=== PATIENT | female | born 1985 | race Caucasian/White ===

== ENCOUNTER 2017-11-19 00:02 | Emergency (ER) | payer OTHER ==
[~2017-11-19 00:02] MED LIST: ISOS60 PO; LACT PO; NITR-29 PO; PROT40TA PO
[2017-11-19 00:13] VITALS: BP 176/89; PULSE 88; RESP 22; TEMP 98.4; O2SAT 99
[2017-11-19] MEDS ORDERED: LISI-519 PO (00:24)
[2017-11-19] MEDS ORDERED: HYDR25TA5 PO (00:24)
[2017-11-19] MEDS ORDERED: VIST50CA PO (00:24)
[2017-11-19] MEDS ORDERED: ZOLO50TA PO (00:24)
[2017-11-19] MEDS ORDERED: ZOLO100T PO (00:24)
[2017-11-19] MEDS ORDERED: ASPI81CH7 CHEW (00:24)
[2017-11-19] MEDS ORDERED: KETOROLAC TROMETHAMINE 60 MG/2 ML (IM) VIAL IM ONE (00:45)
--- NOTE | 2017-11-19 00:48 | PD ---
HPI Chief Complaint: Back/ Neck Pain or Injury Time Seen by Provider: 00:34 Travel History International Travel<30 days: No Contact w/Intl Traveler<30days: No Traveled to known affect area: No History of Present Illness HPI 32-year-old female brought in by ambulance from home for evaluation of left lateral/posterior rib pain. Patient reports that the symptoms started about an hour ago while smoking marijuana. She states she was coughing really hard and began to experience the pain. She reports a similar incident about 2 weeks ago , located more anteriorly. She reports that the coughing was induced from marijuana smoking. She otherwise has not had a cough. No hemoptysis. No history of DVT or PE. She occasionally smokes crack, however denies IVDU. Pain is sharp, worse with movement and palpation. No dyspnea. 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) Tobacco Use: Yes (ppd) Substance Use: Yes (MARIJUANA AND CRACK) Allergies-Medications (Allergen,Severity, Reaction): Coded Allergies: No Known Allergies (Verified Adverse Reaction, Unknown, 11/19/17) Reported Meds & Prescriptions Reported Meds & Active Scripts Active Reported Aspirin Children's (Aspirin) 81 Mg Chew 81 Mg CHEW DAILY Hydrochlorothiazide 25 Mg Tab 25 Mg PO DAILY Lisinopril 5 Mg Tab 25 Mg PO DAILY Vistaril (Hydroxyzine Pamoate) 50 Mg Cap 150 Mg PO HS Zoloft (Sertraline HCl) 100 Mg Tab 200 Mg PO DAILY Zoloft (Sertraline HCl) 50 Mg Tab 50 Mg PO DAILY Review of Systems Except as stated in HPI: all other systems reviewed are Neg Physical Exam Narrative GENERAL: Well-developed, well-nourished, overweight, comfortable, no apparent distress. SKIN: Focused skin assessment warm/dry. HEAD: Atraumatic. Normocephalic. EYES: Pupils equal and round. No scleral icterus. No injection or drainage. ENT: Mucous membranes pink and moist. NECK: Trachea midline. No JVD. CARDIOVASCULAR: Regular rate and rhythm. RESPIRATORY: No accessory muscle use. Clear to auscultation. Breath sounds equal bilaterally. GASTROINTESTINAL: Abdomen soft, non-tender, nondistended. MUSCULOSKELETAL: No obvious deformities. No clubbing. No cyanosis. No edema. Left lateral/posterior rib tenderness without step-off, without crepitus, without paradoxical chest wall movement. NEUROLOGICAL: Awake and alert. No obvious cranial nerve deficits. Motor grossly within normal limits. Normal speech. PSYCHIATRIC: Appropriate mood and affect; insight and judgment normal. Data Data Last Documented VS Vital Signs Date Time Temp Pulse Resp B/P (MAP) Pulse Ox O2 Delivery O2 Flow Rate FiO2 11/19/17 00:13 98.4 88 22 176/89 (118) 99 Orders Orders Ketorolac Inj (Toradol Inj) (11/19/17 00:45) Ribs, Uni (W/Exp Cxr-Min 3vw) (11/19/17 ) Electrocardiogram (11/19/17 ) MDM Medical Decision Making Medical Screen Exam Complete: Yes Emergency Medical Condition: Yes Interpretation(s) EKG: Sinus, rate 66, normal axis, normal intervals, no acute ischemic abnormality. Differential Diagnosis Musculoskeletal strain, pneumothorax, rib fracture, hemothorax, PE less likely, pleurisy, ACS unlikely Narrative Course Vital signs show heart rate 88, blood pressure 176/89, pulse ox 99% on room air , oral temp of 98.4F. Approximately 1:00 AM at the end of my shift visual signed out to Jakub Rod to follow-up with chest x-ray and EKG. If both are unremarkable, then the patient can be safely discharged home as this is most likely a muscle strain secondary to coughing. Diagnosis Primary Impression: Chest wall muscle strain Qualified Codes: S29.011A - Strain of muscle and tendon of front wall of thorax, initial encounter Referrals: Primary Care Physician 3 days Additional Instructions: Follow-up with a primary care physician this week. Return to the emergency department for worsening symptoms or any other concerns. Disposition: 01 DISCHARGE HOME Condition: Stable Bhaskar Hodges MD Nov 19, 2017 00:48
--- NOTE | 2017-11-19 01:18 | RADRPT ---
EXAM DATE/TIME: 11/19/2017 00:49 [place] COMPARISON: No previous studies available for comparison. INDICATIONS : Left side rib pain. Patient states she coughed too hard and now has rib pain. MEDICAL HISTORY : None. SURGICAL HISTORY : None. ENCOUNTER: Initial ACUITY: 1 day PAIN SCORE: 8/10 LOCATION: Left ribs. FINDINGS: Multiple views of the left ribs were performed. There is acute fracture at the posterior lateral lef t ninth rib. No destructive lesions or areas of periosteal thickening are seen. Expiratory view of t he chest is negative for pneumothorax. The mediastinal structures are midline. Clips are seen in th e right upper quadrant of the abdomen. CONCLUSION: Left ninth rib fracture. Gallo Hudson MD on November 19, 2017 at 1:15 Board Certified Radiologist. This report was verified electronically.
[2017-11-19] MEDS ORDERED: CYCL10TA PO (01:37)
[2017-11-19] MEDS ORDERED: ALBU6.7H INH (01:37)
[2017-11-19] MEDS ORDERED: DICL75TA PO (01:37)
--- NOTE | 2017-11-19 01:41 | PD ---
Physical Exam Date Seen by Provider: Nov 19, 2017 Time Seen by Provider: 01:37 Data Data Last Documented VS Vital Signs Date Time Temp Pulse Resp B/P (MAP) Pulse Ox O2 Delivery O2 Flow Rate FiO2 11/19/17 00:13 98.4 88 22 176/89 (118) 99 Orders Orders Ketorolac Inj (Toradol Inj) (11/19/17 00:45) Ribs, Uni (W/Exp Cxr-Min 3vw) (11/19/17 ) Electrocardiogram (11/19/17 ) Ed Discharge Order (11/19/17 01:32) [facility] Medical Record Reviewed: Yes Supervised Visit with MYESHA: Yes Interpretation(s) Left ribs: Negative for pneumothorax. Positive ninth rib fracture. EKG shows NSR, no ST elevation or depression, and no arrhythmias. No significant T-wave inversions. Differential Diagnosis Differential diagnoses: Pneumothorax, pneumomediastinum, rib fracture, back strain Narrative Course Patient's x-ray reveals a nondisplaced ninth rib fracture. EKG is negative for acute cardiac event. Patient is given prescription for diclofenac, Flexeril and albuterol. Diagnosis Primary Impression: Chest wall muscle strain Qualified Codes: S29.011A - Strain of muscle and tendon of front wall of thorax, initial encounter Additional Impression: left ninth rib fracture Referrals: Primary Care Physician 3 days Patient Instructions: General Instructions Additional Instruction: Follow-up with a primary care physician this week. Return to the emergency department for worsening symptoms or any other concerns. stop smoking. Diclofenac, Flexeril and albuterol. Return to the ER if any problems develop. Med/Other Pt SpecificInfo: Prescription(s) given Scripts Albuterol 6.7 GM Inh (Proventil Hfa 6.7 GM Inh) 90 Mcg/Act Aer 2 PUFF INH Q4-6H Y for SHORTNESS OF BREATH, #1 INHALER 0 Refills Prov: Bhaskar Hodges MD 11/19/17 Cyclobenzaprine (Flexeril) 10 Mg Tab 10 MG PO TID for Muscle Spasm, #30 TAB 0 Refills Prov: Bhaskar Hodges MD 11/19/[address] (Diclofenac Sodium DR) 75 Mg Tabdr 75 MG PO BID, #30 TAB 0 Refills Prov: Bhaskar Hodges MD 11/19/17 Disposition: 01 DISCHARGE HOME Condition: Stable Keelen,Serjio T. PA Nov 19, 2017 01:41
--- NOTE | 2017-11-19 22:06 | EKG ---
Date Performed: 11/19/2017 Time Performed: 01:02:59 PTAGE: 32 years EKG: Sinus rhythm INCOMPLETE RIGHT BUNDLE BRANCH BLOCK NONSPECIFIC T-WAVE ABNORMALITY BORDERLINE ECG PREVIOUS TRACING : 02/25/2015 04.32 Since previous tracing, no significant change noted DOCTOR: Gab Murguia Interpretating Date/Time 11/19/2017 22:05:29
== END 2017-11-19 02:09 | disposition home or self-care (01) ==
LOC: NEPD 00:02
DX: S22.32XA Fracture of one rib, left side, initial encounter for closed fracture (principal); S29.011A Strain of muscle and tendon of front wall of thorax, initial encounter; F12.90 Cannabis use, unspecified, uncomplicated; F17.200 Nicotine dependence, unspecified, uncomplicated; X58.XXXA Exposure to other specified factors, initial encounter
CPT/HCPCS: 71101; 93005; 96372; 99284; J1885

== ENCOUNTER 2017-12-16 18:24 | Emergency (ER) | payer OTHER ==
[~2017-12-16] VITALS: Ht 170.2 cm; Wt 195.0 kg
[~2017-12-16 18:24] MED LIST changes: +ALBU6.7H INH; +ASPI81CH7 CHEW; +CYCL10TA PO; +DICL75TA PO; +HYDR25TA5 PO; -ISOS60 PO; -LACT PO; +LISI-519 PO; -NITR-29 PO; -PROT40TA PO; +VIST50CA PO; +ZOLO100T PO; +ZOLO50TA PO
[2017-12-16 18:47] VITALS: BP 203/118; PULSE 78; RESP 16; O2SAT 99
[2017-12-16] MEDS ORDERED: SODIUM CHLOR 0.9% 1000 ML INJ 1,000 ML IV SCH (19:05)
--- NOTE | 2017-12-16 19:05 | PD ---
HPI Chief Complaint: Abdominal Pain Time Seen by Provider: 18:51 Travel History International Travel<30 days: No Contact w/Intl Traveler<30days: No Traveled to known affect area: No History of Present Illness HPI Patient is a 32-year-old female presents to the emergency department for evaluation of epigastric and abdominal pain secondary to a ventral hernia. Patient states she had her ventral hernia repaired years ago and then it reoccurred so she went to [facility] the other day and had a CAT scan of her abdomen showing a hernia and then the physician "pushed on it" and then it felt worse. She presented here today because the paramedics told her this is the better place to come. Denies any fever denies any vomiting but does endorse mild nausea and no diarrhea no fevers. PFSH Past Medical History Blood Disorders: No Anxiety: Yes Depression: Yes Heart Rhythm Problems: No Cancer: No Cardiovascular Problems: Yes Congestive Heart Failure: No Diminished Hearing: No Endocrine: No Genitourinary: No Hiatal Hernia: Yes Hypertension: Yes Immune Disorder: No Kidney Stones: Yes Psychiatric: Yes Reproductive: No Respiratory: No Myocardial Infarction: Yes (2009) PNEUMOCCOCAL Vaccine (Year): 2 ?: Not : 4 Para: 4 Tubal Ligation: Yes Past Surgical History Cardiac Surgery: Yes (CARDIAC CATH) Cholecystectomy: Yes Pacemaker: No Other Surgery: Yes (UMBILICAL HERNIA) Social History 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 HEAD: Atraumatic. Normocephalic. EYES: Pupils equal and round. No scleral icterus. No injection or drainage. ENT: No nasal bleeding or discharge. Mucous membranes pink and moist. NECK: Trachea midline. No JVD. CARDIOVASCULAR: Regular rate and rhythm. No murmur appreciated. RESPIRATORY: No accessory muscle use. Clear to auscultation. Breath sounds equal bilaterally. GASTROINTESTINAL: Abdomen soft, non-tender, nondistended. Hepatic and splenic margins not palpable. MUSCULOSKELETAL: No obvious deformities. No clubbing. No cyanosis. No edema. There appears to be a mass/hernia underlying a surgical scar which could be consistent with a hernia but her exam is extremely limited secondary to body habitus. The abdomen is otherwise benign no rebound no percussive tenderness, normal active bowel sounds NEUROLOGICAL: Awake and alert. No obvious cranial nerve deficits. Motor grossly within normal limits. Normal speech. PSYCHIATRIC: Appropriate mood and affect; insight and judgment normal. Data Data Last Documented VS Vital Signs Date Time Temp Pulse Resp B/P (MAP) Pulse Ox O2 Delivery O2 Flow Rate FiO2 12/16/17 19:43 16 98 Room Air 12/16/17 18:47 78 Orders Orders Complete Blood Count With Diff (12/16/17 19:05) Comprehensive Metabolic Panel (12/16/17 19:05) Lipase (12/16/17 19:05) Lactic Acid (12/16/17 19:05) Urinalysis - C+S If Indicated (12/16/17 19:05) Iv Access Insert/Monitor (12/16/17 19:05) Ecg Monitoring (12/16/17 19:05) Oximetry (12/16/17 19:05) Ondansetron Inj (Zofran Inj) (12/16/17 19:15) Sodium Chlor 0.9% 1000 Ml Inj (Ns 1000 M (12/16/17 19:05) Sodium Chloride 0.9% Flush (Ns Flush) (12/16/17 19:15) Morphine Inj (Morphine Inj) (12/16/17 19:15) Hydromorphone Pf Inj (Dilaudid Pf Inj) (12/16/17 21:45) Ed Discharge Order (12/16/17 22:34) Labs Laboratory Tests Test 12/16/17 19:25 White Blood Count 10.9 TH/MM3 Red Blood Count 5.25 MIL/MM3 Hemoglobin 15.1 GM/DL Hematocrit 43.9 % Mean Corpuscular Volume 83.6 FL Mean Corpuscular Hemoglobin 28.7 PG Mean Corpuscular Hemoglobin Concent 34.3 % Red Cell Distribution Width 14.4 % Platelet Count 282 TH/MM3 Mean Platelet Volume 7.8 FL Neutrophils (%) (Auto) 73.8 % Lymphocytes (%) (Auto) 18.1 % Monocytes (%) (Auto) 7.1 % Eosinophils (%) (Auto) 0.6 % Basophils (%) (Auto) 0.4 % Neutrophils # (Auto) 8.0 TH/MM3 Lymphocytes # (Auto) 2.0 TH/MM3 Monocytes # (Auto) 0.8 TH/MM3 Eosinophils # (Auto) 0.1 TH/MM3 Basophils # (Auto) 0.0 TH/MM3 CBC Comment DIFF FINAL Differential Comment Blood Urea Nitrogen 12 MG/DL Creatinine 0.82 MG/DL Random Glucose 98 MG/DL Total Protein 7.9 GM/DL Albumin 3.5 GM/DL Calcium Level 9.0 MG/DL Alkaline Phosphatase 87 U/L Aspartate Amino Transf (AST/SGOT) 33 U/L Alanine Aminotransferase (ALT/SGPT) 39 U/L Total Bilirubin 0.8 MG/DL Sodium Level 137 MEQ/L Potassium Level 2.8 MEQ/L Chloride Level 98 MEQ/L Carbon Dioxide Level 28.9 MEQ/L Anion Gap 10 MEQ/L Estimat Glomerular Filtration Rate 80 ML/MIN Lactic Acid Level 1.2 mmol/L Lipase 97 U/L MDM Medical Decision Making Medical Screen Exam Complete: Yes Emergency Medical Condition: Yes Differential Diagnosis Strangulate hernia, incarcerated hernia, seroma. Narrative Course Patient was room to the emergency department, after some time we were able to obtain outside records from [facility], the patient was seen by Dr. Agusto Yañez, she had a CAT scan last night and the read of this CAT scan showed the following results: "Large umbilical hernia containing a loop of transverse colon which appears mildly distended within the sac. Large bowel beyond is nearly completely decompressed. Correlate clinically to rule out incarceration. Although there is no fluid within the hernial sac and there is no gross mural thickening in the involved loops of the colon upper peripheral is recommended due to the risk of strangulation. No small bowel dilation. Hepatic steatosis, right adrenal gland myolipoma, benign." Below this under reexamination: "Notes: For local hernia, easily reduced, patient did receive a CT scan before hernia reduction, it showed a loop of transverse cold distention within sac, possible incarceration no evidence of strangulation. Patient felt better after hernia was reduced. Patient also on laboratory workup UTI will be sent home on Keflex stable for discharge outpatient follow-up." Patient's labs including a CBC, CMP a lactic acid a lipase is significant only for some mild hypokalemia with potassium at 2.8. Fairly certain I felt a small amount of this mass slipped into her abdomen however it is a very difficult examination secondary to her body habitus. I am hesitant to re-CAT scan her as her abdomen is very benign and she is not displaying any symptoms of obstipation or fever and I do not think this represents a strangulate hernia. I have asked for my colleague Dr. Iniguez to examine the patient as well, he is performed a bedside ultrasound and cannot identify any intestine in the extraperitoneal space. He is also examined the patient and does not believe that there is any intestine within the abdominal wall, we both agree that the patient can go home at this time and follow-up with general surgery, she was counseled closely and return to ED criteria. She is stable for discharge. Patient was given multiple doses of narcotics in the emergency department, she assures me that she has a ride coming and is not driving home. Diagnosis Primary Impression: Hernia, ventral Referrals: Marlon Cohen MD Patient Instructions: General Instructions, Ventral Hernia (DC) Disposition: 01 DISCHARGE HOME Condition: Stable Pravin Chacon MD Dec 16, 2017 19:05
[2017-12-16] MEDS ORDERED: ONDANSETRON HCL 4 MG/2 ML VIAL IVP ONE (19:15)
[2017-12-16] MEDS ORDERED: SODIUM CHLORIDE 0.9% FLUSH 10 ML FLUSH IV FLUSH PRN (19:15)
[2017-12-16] MEDS ORDERED: MORPHINE SULFATE 8 MG/ML INJ IV PUSH ONE (19:15)
[2017-12-16 19:43] VITALS: RESP 16; O2SAT 98
[2017-12-16 20:08] LABS: BASOPHIL % 0.4 % (0.0-2.0); EOSINOPHIL # 0.1 TH/MM3 (0-0.4); EOSINOPHIL % 0.6 % (0.0-4.0); HEMATOCRIT 43.9 % (35.0-46.0); HEMOGLOBIN 15.1 GM/DL (11.6-15.3); LYMPH % 18.1 % (9.0-44.0); MEAN CELL VOLUME 83.6 FL (80.0-100.0); MEAN CORPUSCULAR HEMOGLOBIN 28.7 PG (27.0-34.0); MEAN CORPUSCULAR HGB CONC 34.3 % (32.0-36.0); MEAN PLATELET VOLUME 7.8 FL (7.0-11.0); MONO % 7.1 % (0.0-8.0); MONOCYTE # 0.8 TH/MM3 (0-0.9); NEUT % 73.8 % (16.0-70.0); PLATELET COUNT 282 TH/MM3 (150-450); RED BLOOD COUNT 5.25 MIL/MM3 (4.00-5.30); RED CELL DISTRIBUTION WIDTH 14.4 % (11.6-17.2); WHITE BLOOD COUNT 10.9 TH/MM3 (4.0-11.0)
[2017-12-16 20:23] LABS: ALBUMIN 3.5 GM/DL (3.4-5.0); ALKALINE PHOSPHATASE 87 U/L (45-117); ALT (GPT) 39 U/L (10-53); AST (GOT) 33 U/L (15-37); BICARBONATE 28.9 MEQ/L (21.0-32.0); BLOOD UREA NITROGEN 12 MG/DL (7-18); CHLORIDE 98 MEQ/L (98-107); CREATININE 0.82 MG/DL (0.50-1.00); GLOMERULAR FILTRATION RATE 80 ML/MIN (>89); GLUCOSE,RANDOM 98 MG/DL (74-106); SODIUM (NA) 137 MEQ/L (136-145); TOTAL BILIRUBIN ADULT 0.8 MG/DL (0.2-1.0); TOTAL PROTEIN 7.9 GM/DL (6.4-8.2)
[2017-12-16] MEDS ORDERED: HYDROmorphone HCL PF 2 MG/ML VIAL IV PUSH ONE (21:45)
[2017-12-16] MEDS ORDERED: POTASSIUM CHLORIDE 20 MEQ CONTROLLED RELEASE TAB PO ONE (23:00)
== END 2017-12-16 23:10 | disposition home or self-care (01) ==
LOC: NEPD 18:24
DX: K43.9 Ventral hernia without obstruction or gangrene (principal); I10 Essential (primary) hypertension; F41.9 Anxiety disorder, unspecified; F32.9 Major depressive disorder, single episode, unspecified; I25.2 Old myocardial infarction; F17.200 Nicotine dependence, unspecified, uncomplicated; F12.90 Cannabis use, unspecified, uncomplicated
CPT/HCPCS: 80053; 83605; 83690; 85025; 96374; 96375; 99283; J1170; J2270; J2405; J7030

== ENCOUNTER 2018-03-19 14:45 | Emergency (ER) | payer OTHER ==
[~2018-03-19] VITALS: Ht 157.5 cm; Wt 200.0 kg
[~2018-03-19 14:45] MED LIST changes: -ALBU6.7H INH; -ASPI81CH7 CHEW; -CYCL10TA PO; -DICL75TA PO; -VIST50CA PO; -ZOLO100T PO; -ZOLO50TA PO
[2018-03-19 15:22] VITALS: BP 141/73; PULSE 84; RESP 18; TEMP 99; O2SAT 99
[2018-03-19] MEDS ORDERED: ZOLO100T PO (18:41)
[2018-03-19] MEDS ORDERED: VIST50CA PO (18:41)
--- NOTE | 2018-03-19 18:56 | PD ---
HPI Chief Complaint: Skin Problem Time Seen by Provider: 18:55 Travel History International Travel<30 days: No Contact w/Intl Traveler<30days: No Traveled to known affect area: No History of Present Illness HPI 32-year-old female presents to the emergency department with 2 complaints. Her first complaint is an itchy rash to both hands that started yesterday after getting off of the [employer] bus. Denies airway edema, tongue edema, shortness of breath, difficulty breathing. Denies fever, vomiting. Denies new exposures to lotions, soaps, detergents, medications, foods, environmental exposures. No one else with similar symptoms. Has not taken any medication or trying treatments to alleviate her symptoms. Symptoms are mild in severity. No known aggravating or relieving factors. Her second complaint is an abscess to her abdominal scar that started a few days ago and opened up and drained last night. She had history of hernia repair 4 months ago. Denies fever, vomiting. Denies pain to the area. Says she has had areas like this that come and go to the surgical scar. Her surgeon is at [facility]. Has not taken any medication or try any treatments to alleviate her symptoms. Has covered with a bandage. No known aggravating or relieving factors. Symptoms are mild to moderate in severity. No known allergies. No primary care provider. History of hypertension. Has no other medical complaints. No other modifying factors or associated signs and symptoms. PFSH Past Medical History Blood Disorders: No Anxiety: Yes Depression: Yes Heart Rhythm Problems: No Cancer: No Cardiovascular Problems: Yes Congestive Heart Failure: No Diminished Hearing: No Endocrine: No Genitourinary: No Hiatal Hernia: Yes Hypertension: Yes Immune Disorder: No Kidney Stones: Yes Psychiatric: Yes Reproductive: No Respiratory: No Myocardial Infarction: Yes (2009) PNEUMOCCOCAL Vaccine (Year): 2 ?: Not LMP: 02/11/18 : 4 Para: 4 Tubal Ligation: Yes Past Surgical History Cardiac Surgery: Yes (CARDIAC CATH) Cholecystectomy: Yes Pacemaker: No Other Surgery: Yes (UMBILICAL HERNIA) Social History Alcohol Use: No Tobacco Use: Yes (PPD BLACK AND MILDS) Substance Use: No Allergies-Medications (Allergen,Severity, Reaction): Coded Allergies: No Known Allergies (Verified Adverse Reaction, Unknown, 03/19/18) Reported Meds & Prescriptions Reported Meds & Active Scripts Active Deltasone (Prednisone) 20 Mg Tab 40 Mg PO DAILY 4 Days start 03/20/2018 Bactrim DS (Sulfamethoxazole-Trimethoprim) 800-160 Mg Tab 1 Tab PO BID 10 Days Reported Zoloft (Sertraline HCl) 100 Mg Tab 150 Mg PO DAILY Vistaril (Hydroxyzine Pamoate) 50 Mg Cap 150 Mg PO HS Hydrochlorothiazide 25 Mg Tab 25 Mg PO DAILY Lisinopril 5 Mg Tab 25 Mg PO DAILY Review of Systems Except as stated in HPI: all other systems reviewed are Neg Physical Exam Narrative GENERAL: Well-nourished, well-developed patient, in no acute distress; afebrile , nontoxic-appearing SKIN: Warm and dry. Generalized small areas of maculopapular rash to bilateral hands and forearms. No cellulitic process noted. Abdomen with surgical scar with 2 pinpoint areas that have minimal amount of purulent drainage noted; no palpable abscesses or fluctuance; no surrounding erythema; without tenderness on palpation. HEAD: Atraumatic. Normocephalic. EYES: Pupils equal and round. No scleral icterus. No injection or drainage. ENT: Mucosa pink and moist. No erythema or exudates. No uvular edema. No uvular , palatal, or tonsillar deviation. Airway patent. EARS: Bilateral pinnae and external canals appear within normal limits. Bilateral tympanic membranes without erythema, dullness or perforation. NECK: Trachea midline. No lymphadenopathy. CARDIOVASCULAR: Regular rate RESPIRATORY: No accessory muscle use. GASTROINTESTINAL: Obese. MUSCULOSKELETAL: No obvious deformities. No clubbing. No cyanosis. No edema. NEUROLOGICAL: Awake and alert. Oriented 3. No obvious cranial nerve deficits. Motor grossly within normal limits. Normal speech. Moves all extremities. 5/5 strength to all extremities. PSYCHIATRIC: Appropriate mood and affect; insight and judgment normal. Data Data Last Documented VS Vital Signs Date Time Temp Pulse Resp B/P (MAP) Pulse Ox O2 Delivery O2 Flow Rate FiO2 03/19/18 15:22 99.0 84 18 141/73 (95) 99 Orders Orders Sulfamet-Trimeth Ds 800-160 Mg (Bactrim (03/19/18 19:15) Diphenhydramine (Benadryl) (03/19/18 19:15) Prednisone (Deltasone) (03/19/18 19:15) Ed Discharge Order (03/19/18 19:03) Wound Culture And Gram Stain (03/19/18 19:03) [facility] Medical Decision Making Medical Screen Exam Complete: Yes Emergency Medical Condition: Yes Medical Record Reviewed: Yes Differential Diagnosis Hives, scabies, abscess, surgical wound abscess Narrative Course 32-year-old female with a rash to bilateral hands and forearms that is itchy in nature. Appears to be consistent with hives. She also has 2 small pinpoint areas to her midline abdominal surgical scar that have a minimal amount of purulent drainage. There is no surrounding erythema or palpable abscesses or fluctuance. Patient is afebrile nontoxic pain. Denies fever, vomiting. Wound culture pending. Benadryl, Bactrim, Deltasone administered in the ER. Deltasone and Bactrim prescribed for home. Instructed patient to follow up with primary care provider. Patient verbalizes understanding and agreement with treatment plan. Patient is medically cleared and stable for discharge. Discussed reasons to return to the emergency department. Patient agrees with treatment plan. The patients vital signs are stable and the patient is stable for outpatient follow-up and treatment. Patient discharged home, stable and in no acute distress. Diagnosis Primary Impression: Rash and nonspecific skin eruption Additional Impression: Abdominal wall abscess at site of surgical wound Referrals: [facility] [employer] Primary Care Physician Patient Instructions: Abscess (ED), Abscess Follow-up (ED), Acute Rash (ED), General Instructions Additional Instructions: Take oral steroids as prescribed [id number] topicals to reduce itch Benadryl as directed and as needed to reduce itch Follow-up with your primary care provider Return to the emergency department immediately with worsening of symptoms Complete full course of antibiotics Warm compresses to the affected area Keep area clean and dry Ibuprofen or Tylenol as directed and as needed for pain and inflammation Follow-up with primary care provider Return to emergency department immediately with worsening of symptoms Med/Other Pt SpecificInfo: Prescription(s) given Scripts Prednisone (Deltasone) 20 Mg Tab 40 MG PO DAILY for 4 Days, #8 TAB 0 Refills start 03/20/2018 Prov: Di Uribe 03/19/18 Sulfamethoxazole-Trimethoprim (Bactrim DS) 800-160 Mg Tab 1 TAB PO BID for Infection for 10 Days, #20 TAB 0 Refills Prov: Di Uribe 03/19/18 Disposition: 01 DISCHARGE HOME Condition: Stable Di Uribe March 19, 2018 18:56
[2018-03-19] MEDS ORDERED: BACT800T5 PO (19:08)
[2018-03-19] MEDS ORDERED: PRED-503 PO (19:08)
[2018-03-19] MEDS ORDERED: predniSONE 20 MG TAB PO ONE (19:15)
[2018-03-19] MEDS ORDERED: SULFAMETHOXAZOLE-TRIMETHOPRIM DS 800-160 MG TAB PO ONE (19:15)
[2018-03-19] MEDS ORDERED: diphenhydrAMINE HCL 50 MG CAP PO ONE (19:15)
== END 2018-03-19 19:34 | disposition home or self-care (01) ==
LOC: NEPD 14:45
DX: R21 Rash and other nonspecific skin eruption (principal); L02.211 Cutaneous abscess of abdominal wall; I10 Essential (primary) hypertension; F17.210 Nicotine dependence, cigarettes, uncomplicated
CPT/HCPCS: 87070; 99283; J7512; Q0163; 87205

== ENCOUNTER 2018-04-24 18:42 | Emergency (ER) | payer OTHER ==
[~2018-04-24] VITALS: Ht 170.2 cm; Wt 175.0 kg
[~2018-04-24 18:42] MED LIST changes: +BACT800T5 PO; +PRED-503 PO; +VIST50CA PO; +ZOLO100T PO
[2018-04-24 18:55] VITALS: BP 210/98; PULSE 50; RESP 16; TEMP 98.6; O2SAT 100
[2018-04-24] MEDS ORDERED: LISI-515 PO (19:12)
[2018-04-24] MEDS ORDERED: SODIUM CHLOR 0.9% 1000 ML INJ 1,000 ML IV SCH (19:40)
[2018-04-24] MEDS ORDERED: KETOROLAC TROMETHAMINE 30 MG/ML (IVP) VIAL IVP ONE (19:45)
[2018-04-24] MEDS ORDERED: diphenhydrAMINE HCL 50 MG/ML VIAL IV PUSH ONE (19:45)
[2018-04-24] MEDS ORDERED: SODIUM CHLORIDE 0.9% FLUSH 10 ML FLUSH IV FLUSH PRN (19:45)
[2018-04-24] MEDS ORDERED: PANTOPRAZOLE SOD 40 MG DELAYED RELEASE TAB PO ONE (19:45)
--- NOTE | 2018-04-24 19:50 | PD ---
HPI Chief Complaint: Abdominal Pain Time Seen by Provider: 19:31 Travel History International Travel<30 days: No Contact w/Intl Traveler<30days: No Traveled to known affect area: No History of Present Illness HPI 32-year-old female complains of abdominal pain with nausea vomiting. Patient states that abdominal pain started this morning around 9:00 this morning. Patient states the pain is sharp pain localized to the upper abdomen epigastric area. Patient denies any pain radiation. Patient states that she has intermittent nausea vomiting with the pain. Patient denies any dysuria frequency. Patient denies any vaginal discharge or bleeding. Patient has history of ventral hernia. Patient was seen at [facility] emergency room in the past for the same problem. Patient was referred to local general surgeon for follow-up. Patient has not follow-up with general surgeon. On a scale of 1-10 the pain is a 9. Patient has history of hypertension and on medication for that. Patient states that she has not taken her blood pressure medication today. PFSH Past Medical History Blood Disorders: No Anxiety: Yes Depression: Yes Heart Rhythm Problems: No Cancer: No Cardiac Catheterization: Yes Cardiovascular Problems: Yes Congestive Heart Failure: No Diminished Hearing: No Endocrine: No Genitourinary: No Hiatal Hernia: Yes (UMBILLICAL ) Hypertension: Yes Immune Disorder: No Kidney Stones: Yes Psychiatric: Yes Reproductive: No Respiratory: No Myocardial Infarction: Yes (2009) PNEUMOCCOCAL Vaccine (Year): 2 ?: Unknown LMP: 04/14/18 : 4 Para: 4 Tubal Ligation: Yes Past Surgical History Cardiac Surgery: Yes (CARDIAC CATH) Cholecystectomy: Yes Pacemaker: No Other Surgery: Yes (UMBILICAL HERNIA) Social History Alcohol Use: No Tobacco Use: Yes (PPD BLACK AND MILDS) Substance Use: No Allergies-Medications (Allergen,Severity, Reaction): Coded Allergies: No Known Allergies (Verified Adverse Reaction, Unknown, 04/24/18) Reported Meds & Prescriptions Reported Meds & Active Scripts Active Reported Lisinopril 20 Mg Tab 20 Mg PO DAILY Zoloft (Sertraline HCl) 100 Mg Tab 150 Mg PO DAILY Vistaril (Hydroxyzine Pamoate) 50 Mg Cap 150 Mg PO HS Hydrochlorothiazide 25 Mg Tab 25 Mg PO DAILY Review of Systems General / Constitutional: No: Fever Eyes: No: Visual changes HENT: No: Headaches Cardiovascular: No: Chest Pain or Discomfort Respiratory: No: Shortness of Breath Gastrointestinal: Positive: Nausea, Vomiting, Abdominal Pain Genitourinary: No: Dysuria Musculoskeletal: No: Pain Skin: No Rash Neurologic: No: Weakness Psychiatric: No: Depression Endocrine: No: Polydipsia Hematologic/Lymphatic: No: Easy Bruising Physical Exam Narrative GENERAL: Well-nourished, well-developed patient. SKIN: Focused skin assessment warm/dry. HEAD: Normocephalic. EYES: No scleral icterus. No injection or drainage. NECK: Supple, trachea midline. No JVD or lymphadenopathy. CARDIOVASCULAR: Regular rate and rhythm without murmurs, gallops, or rubs. RESPIRATORY: Breath sounds equal bilaterally. No accessory muscle use. GASTROINTESTINAL: Abdomen soft, nondistended. Patient has moderate tenderness on palpation epigastric area of the abdomen. No rebound tenderness. No mass. MUSCULOSKELETAL: No cyanosis, or edema. BACK: Nontender without obvious deformity. No CVA tenderness. Data Data Last Documented VS Vital Signs Date Time Temp Pulse Resp B/P (MAP) Pulse Ox O2 Delivery O2 Flow Rate FiO2 04/24/18 18:55 98.6 50 16 210/98 (135) 100 Orders Orders Complete Blood Count With Diff (04/24/18 19:40) Comprehensive Metabolic Panel (04/24/18 19:40) Lipase (04/24/18 19:40) Urinalysis - C+S If Indicated (04/24/18 19:40) Ct Abd/Pel W/O Iv Contrast (04/24/18 19:40) Iv Access Insert/Monitor (04/24/18 19:40) Ecg Monitoring (04/24/18 19:40) Oximetry (04/24/18 19:40) Sodium Chlor 0.9% 1000 Ml Inj (Ns 1000 M (04/24/18 19:40) Sodium Chloride 0.9% Flush (Ns Flush) (04/24/18 19:45) Ketorolac Inj (Toradol Inj) (04/24/18 19:45) Ed Urine Pregnancytest Poc (04/24/18 19:40) Diphenhydramine Inj (Benadryl Inj) (04/24/18 19:45) Pantoprazole (Protonix) (04/24/18 19:45) Labs Laboratory Tests Test 04/24/18 21:00 White Blood Count 9.5 TH/MM3 Red Blood Count 4.97 MIL/MM3 Hemoglobin 13.4 GM/DL Hematocrit 40.6 % Mean Corpuscular Volume 81.6 FL Mean Corpuscular Hemoglobin 26.9 PG Mean Corpuscular Hemoglobin Concent 32.9 % Red Cell Distribution Width 15.4 % Platelet Count 280 TH/MM3 Mean Platelet Volume 8.1 FL Neutrophils (%) (Auto) 87.6 % Lymphocytes (%) (Auto) 9.6 % Monocytes (%) (Auto) 2.2 % Eosinophils (%) (Auto) 0.1 % Basophils (%) (Auto) 0.5 % Neutrophils # (Auto) 8.4 TH/MM3 Lymphocytes # (Auto) 0.9 TH/MM3 Monocytes # (Auto) 0.2 TH/MM3 Eosinophils # (Auto) 0.0 TH/MM3 Basophils # (Auto) 0.0 TH/MM3 CBC Comment DIFF FINAL Differential Comment Blood Urea Nitrogen 16 MG/DL Creatinine 0.76 MG/DL Random Glucose 120 MG/DL Total Protein 7.8 GM/DL Albumin 3.7 GM/DL Calcium Level 8.4 MG/DL Alkaline Phosphatase 81 U/L Aspartate Amino Transf (AST/SGOT) 14 U/L Alanine Aminotransferase (ALT/SGPT) 18 U/L Total Bilirubin 0.3 MG/DL Sodium Level 139 MEQ/L Potassium Level 3.4 MEQ/L Chloride Level 105 MEQ/L Carbon Dioxide Level 23.8 MEQ/L Anion Gap 10 MEQ/L Estimat Glomerular Filtration Rate 87 ML/MIN Lipase 75 U/L [facility] Medical Decision Making Medical Screen Exam Complete: Yes Emergency Medical Condition: Yes Interpretation(s) Last Impressions Abdomen/Pelvis CT 04/24/181939 Signed Impressions: CONCLUSION: 1. Ventral hernia containing fat and fluid. Fatty portion measures up to 5 x 9 .7 cm and fluid portion up to 6 x 8 cm as above. No bowel incarceration or obst ruction. No free air or free intraperitoneal fluid identified. 23:28 PM. CBC within normal limits. WBC 9.5. 87 neutrophil. Potassium 3.4. Calcium 8.4. Differential Diagnosis Differential diagnosis including incarcerated hernia, strangulated hernia, gastritis, PUD, pancreatitis, colitis, UTI, pyelonephritis, nephrolithiasis. Narrative Course 32-year-old female with abdominal pain, nausea vomiting. History of ventral hernia. Diagnosis Primary Impression: Abdominal pain Qualified Codes: R10.10 - Upper abdominal pain, unspecified Additional Impression: Ventral hernia Qualified Codes: K43.9 - Ventral hernia without obstruction or gangrene Patient Instructions: General Instructions Additional Instructions: Take medication as needed for pain. Follow-up with general surgeon. Return if worse. Med/Other Pt SpecificInfo: Prescription(s) given Scripts Ondansetron Odt (Zofran Odt) 4 Mg Tab 4 MG SL Q6HR Y for Nausea/Vomiting, #12 TAB 0 Refills Prov: Maxi Carlos MD 04/24/18 Methocarbamol (Robaxin) 750 Mg Tab 750 MG PO QID for Muscle Spasm, #40 TAB 0 Refills Prov: Maxi Carlos MD 04/24/18 Meloxicam (Mobic) 15 Mg Tab 15 MG PO DAILY for Pain, #20 TAB 0 Refills Prov: Maxi Carlos MD 04/24/18 Disposition: 01 DISCHARGE HOME Condition: Stable Maxi Carlos MD Apr 24, 2018 19:50
[2018-04-24 21:19] LABS: AUTOMATED NEUTROPHIL # 8.4 TH/MM3 (1.8-7.7); BASOPHIL % 0.5 % (0.0-2.0); EOSINOPHIL % 0.1 % (0.0-4.0); HEMATOCRIT 40.6 % (35.0-46.0); HEMOGLOBIN 13.4 GM/DL (11.6-15.3); LYMPH % 9.6 % (9.0-44.0); LYMPHOCYTE # 0.9 TH/MM3 (1.0-4.8); MEAN CELL VOLUME 81.6 FL (80.0-100.0); MEAN CORPUSCULAR HEMOGLOBIN 26.9 PG (27.0-34.0); MEAN CORPUSCULAR HGB CONC 32.9 % (32.0-36.0); MEAN PLATELET VOLUME 8.1 FL (7.0-11.0); MONO % 2.2 % (0.0-8.0); MONOCYTE # 0.2 TH/MM3 (0-0.9); NEUT % 87.6 % (16.0-70.0); PLATELET COUNT 280 TH/MM3 (150-450); RED BLOOD COUNT 4.97 MIL/MM3 (4.00-5.30); RED CELL DISTRIBUTION WIDTH 15.4 % (11.6-17.2); WHITE BLOOD COUNT 9.5 TH/MM3 (4.0-11.0)
[2018-04-24 21:46] LABS: ALBUMIN 3.7 GM/DL (3.4-5.0); ALT (GPT) 18 U/L (10-53); AST (GOT) 14 U/L (15-37); BICARBONATE 23.8 MEQ/L (21.0-32.0); BLOOD UREA NITROGEN 16 MG/DL (7-18); CALCIUM 8.4 MG/DL (8.5-10.1); CHLORIDE 105 MEQ/L (98-107); CREATININE 0.76 MG/DL (0.50-1.00); GLOMERULAR FILTRATION RATE 87 ML/MIN (>89); GLUCOSE,RANDOM 120 MG/DL (74-106); SODIUM (NA) 139 MEQ/L (136-145)
[2018-04-24 21:49] LABS: ALKALINE PHOSPHATASE 81 U/L (45-117); TOTAL BILIRUBIN ADULT 0.3 MG/DL (0.2-1.0); TOTAL PROTEIN 7.8 GM/DL (6.4-8.2)
--- NOTE | 2018-04-24 22:34 | RADRPT ---
EXAM DATE: 04/24/2018 10:24 PM EDT AGE/SEX: 32 years / Female INDICATIONS: Mid abdominal pain. Nausea and vomiting. Evaluate for hernia. CLINICAL DATA: This is the patient's initial encounter. Patient reports that signs and symptoms have been present for 1 day and indicates a pain score of 8/10. MEDICAL/SURGICAL HISTORY: Cardiovascular disease. Hiatal hernia. Renal calculi. Myocardial i nfarction. Cholecystectomy. Tubal ligation. Umbilical hernia repair. RADIATION DOSE: 38.78 CTDI (mGy) ; Patient body habitus COMPARISON: [facility] [place], CT ABDOMEN & PELVIS W/O CONTRAST, 02/22/2015. . TECHNIQUE: Multiple contiguous axial images were obtained through the abdomen. Images were obtained using multiple row detector helical technique. Using automated exposure control and adjustment of the mA and/or kV according to patient size, radiation dose was kept as low as reasonably achievable to o btain optimal diagnostic quality images. DICOM format image data is available electronically for rev iew and comparison. FINDINGS: There is a ventral hernia containing fat and fluid. The fatty portion measures about 5 cm in diameter and 9.7 cm in cephalocaudad extent and the fluid collection up to 6 cm in lateral diameter and 8 cm in cephalocaudad extent. This is near the umbilicus. There is some surrounding edematous changes in t he soft tissues. No bowel herniation or incarceration is identified. Lung bases are clear. No acute findings in the liver, spleen, adrenals, kidneys or pancreas. Previous cholecystectomy. No acute bony abnormalities. CONCLUSION: 1. Ventral hernia containing fat and fluid. Fatty portion measures up to 5 x 9.7 cm and fluid portio n up to 6 x 8 cm as above. No bowel incarceration or obstruction. No free air or free intraperitoneal fluid identified. Electronically signed by: Serjio Stanley MD 04/24/2018 10:33 PM EDT
[2018-04-24] MEDS ORDERED: ROBA750T PO (23:35)
[2018-04-24] MEDS ORDERED: MOBI15TA PO (23:35)
[2018-04-24] MEDS ORDERED: ZOFR4TAB3 SL (23:35)
[2018-04-24 23:40] VITALS: BP 168/93
== END 2018-04-25 00:08 | disposition home or self-care (01) ==
LOC: NEPD 18:42
DX: R10.10 Upper abdominal pain, unspecified (principal); K43.9 Ventral hernia without obstruction or gangrene; R11.2 Nausea with vomiting, unspecified; I10 Essential (primary) hypertension; F32.9 Major depressive disorder, single episode, unspecified; F17.210 Nicotine dependence, cigarettes, uncomplicated
CPT/HCPCS: 74176; 80053; 83690; 84703; 85025; 96374; 96375; 99284; J1200; J1885; J7030

== ENCOUNTER 2018-04-25 02:00 | Emergency (ER) | payer OTHER ==
[~2018-04-25] VITALS: Ht 170.2 cm; Wt 175.0 kg
[~2018-04-25 02:00] MED LIST changes: -BACT800T5 PO; +LISI-515 PO; -LISI-519 PO; +MOBI15TA PO; -PRED-503 PO; +ROBA750T PO; +ZOFR4TAB3 SL
[2018-04-25 02:03] VITALS: BP 124/58; PULSE 66; RESP 18; TEMP 98.9; O2SAT 99
[2018-04-25] MEDS ORDERED: PROCHLORPERAZINE INJ 10 MG/2 ML VIAL IV PUSH ONE (03:30)
[2018-04-25] MEDS ORDERED: ACETAMINOPHEN/CODEINE 300 MG/30 MG TAB PO ONE (04:30)
--- NOTE | 2018-04-25 04:55 | PD ---
HPI Chief Complaint: GI Complaint Time Seen by Provider: 02:32 Travel History International Travel<30 days: No Contact w/Intl Traveler<30days: No Traveled to known affect area: No History of Present Illness HPI This is a 32-year-old female who presents to the emergency department with 1 day of vomiting and abdominal pain, constant, moderate severity all over her abdomen with some loose stools but no fevers or chills. She does have a ventral hernia. She was just discharged from the emergency department earlier today and seen by Dr. Carlos who ordered labs and a CT scan all of which were reassuring. Patient reports that since her discharge she continues to vomit and cannot keep anything down. PFSH Past Medical History Blood Disorders: No Anxiety: Yes Depression: Yes Heart Rhythm Problems: No Cancer: No Cardiac Catheterization: Yes Cardiovascular Problems: Yes Congestive Heart Failure: No Diminished Hearing: No Endocrine: No Gastrointestinal Disorders: No Genitourinary: No Hiatal Hernia: Yes (UMBILLICAL ) Hypertension: Yes Immune Disorder: No Implanted Vascular Access Dvce: No Kidney Stones: Yes Psychiatric: Yes Reproductive: No Respiratory: No Myocardial Infarction: Yes (2009) PNEUMOCCOCAL Vaccine (Year): 2 ?: Not : 4 Para: 4 Tubal Ligation: Yes Past Surgical History Cardiac Surgery: Yes (CARDIAC CATH) Cholecystectomy: Yes Pacemaker: No Other Surgery: Yes (UMBILICAL HERNIA) Family History Family Myocardial Infarction: No Social History Alcohol Use: No Tobacco Use: Yes (PPD BLACK AND MILDS) Substance Use: No Allergies-Medications (Allergen,Severity, Reaction): Coded Allergies: No Known Allergies (Verified Adverse Reaction, Unknown, 04/25/18) Reported Meds & Prescriptions Reported Meds & Active Scripts Active Zofran Odt (Ondansetron Odt) 4 Mg Tab 4 Mg SL Q6HR PRN Robaxin (Methocarbamol) 750 Mg Tab 750 Mg PO QID Mobic (Meloxicam) 15 Mg Tab 15 Mg PO DAILY Reported Lisinopril 20 Mg Tab 20 Mg PO DAILY Zoloft (Sertraline HCl) 100 Mg Tab 150 Mg PO DAILY Vistaril (Hydroxyzine Pamoate) 50 Mg Cap 150 Mg PO HS Hydrochlorothiazide 25 Mg Tab 25 Mg PO DAILY Review of Systems Except as stated in HPI: all other systems reviewed are Neg Physical Exam Narrative GENERAL: Morbidly obese, exam is limited by habitus. SKIN: Focused skin assessment warm and dry. HEAD: Atraumatic. Normocephalic. EYES: Pupils equal and round. No injection or drainage. ENT: Moist mucous membranes NECK: Trachea midline. CARDIOVASCULAR: Regular rate and rhythm. No murmur appreciated. RESPIRATORY: Clear to auscultation. Breath sounds equal bilaterally. GASTROINTESTINAL: Abdomen soft, mildly tender to palpation in the mid and upper abdomen with no rebound or guarding. MUSCULOSKELETAL: No obvious deformities. NEUROLOGICAL: Awake and alert. No obvious cranial nerve deficits. Moving all extremities. PSYCHIATRIC: Appropriate mood and affect; insight and judgment normal. Data Data Last Documented VS Vital Signs Date Time Temp Pulse Resp B/P (MAP) Pulse Ox O2 Delivery O2 Flow Rate FiO2 04/25/18 02:03 98.9 66 18 124/58 (80) 99 Orders Orders ^ Insert Iv (04/25/18 03:26) Prochlorperazine Inj (Compazine Inj) (04/25/18 03:30) Urinalysis - C+S If Indicated (04/25/18 03:26) Drug Screen, Random Urine (04/25/18 03:26) Acetamin-Codeine 300-30 Mg (Tylenol-Code (04/25/18 04:30) MDM Medical Decision Making Medical Screen Exam Complete: Yes Emergency Medical Condition: Yes Interpretation(s) Afebrile, no tachycardia, normotensive Differential Diagnosis Gastritis, bowel obstruction, cannabis hyperemesis syndrome Narrative Course This is a 32-year-old female who presents to the emergency department with nausea vomiting. She just was discharged earlier today and had an extensive normal workup including labs and CT abdomen and pelvis. Patient was given Compazine and IV fluids here in the emergency department and she feels much better. She did admit to me that she has been smoking K2 and marijuana and she thought this might be a side effect of those. I suspect the patient is suffering from cannabis hyperemesis syndrome. She will be discharged home Diagnosis Primary Impression: Cannabis hyperemesis syndrome concurrent with and due to cannabis abuse Patient Instructions: General Instructions Additional Instructions: If you develop severe or worsening abdominal pain, fever>100.4, persistent vomiting or inability to eat or drink return to the emergency department immediately. Follow up with your primary care physician in 1-2 days for a check-up. Med/Other Pt SpecificInfo: No Change to Meds Disposition: 01 DISCHARGE HOME Condition: Stable Araceli Eduardo MD Apr 25, 2018 04:55
== END 2018-04-25 07:16 | disposition home or self-care (01) ==
LOC: NEPE 02:00
DX: F12.188 Cannabis abuse with other cannabis-induced disorder (principal); R10.84 Generalized abdominal pain; R19.7 Diarrhea, unspecified; I10 Essential (primary) hypertension; I25.2 Old myocardial infarction; F41.8 Other specified anxiety disorders; Z72.0 Tobacco use; Z86.79 Personal history of other diseases of the circulatory system; Z87.442 Personal history of urinary calculi
CPT/HCPCS: 96374; 99284; J0780